=== PATIENT | male | born 1995 | race Two or more races ===

== ENCOUNTER 2024-08-31 19:16 | Emergency (ER) | payer SELFPAY | END 2024-08-31 20:53 | disposition left against medical advice (07) | LOC: ER 19:16 | DX: Z44.8 Encounter for fitting and adjustment of other external prosthetic devices (principal); Z53.21 Procedure and treatment not carried out due to patient leaving prior to being seen by health care provider ==

== ENCOUNTER 2024-09-18 10:17 | Emergency (ER) | payer MEDICAID ==
[~2024-09-18] VITALS: Ht 180.3 cm; Wt 59.0 kg
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
[2024-09-18 12:50] LABS: Urine Protein, UAD 1+ (Negative)
[2024-09-18] MEDS ORDERED: CIPR-173 PO (14:04)
[2024-09-18 15:40] VITALS: BP 112/63; PULSE 89; RESP 18; TEMP 98.2; O2SAT 97
== END 2024-09-18 16:45 | disposition home or self-care (01) ==
LOC: ER 10:17
DX: T83.098A Other mechanical complication of other urinary catheter, initial encounter (principal); N39.0 Urinary tract infection, site not specified; F17.210 Nicotine dependence, cigarettes, uncomplicated; F10.90 Alcohol use, unspecified, uncomplicated; F12.90 Cannabis use, unspecified, uncomplicated; F19.90 Other psychoactive substance use, unspecified, uncomplicated; G82.20 Paraplegia, unspecified; Z93.59 Other cystostomy status; Z98.890 Other specified postprocedural states; Y90.9 Presence of alcohol in blood, level not specified; Y83.8 Other surgical procedures as the cause of abnormal reaction of the patient, or of later complication, without mention of misadventure at the time of the procedure; Y92.89 Other specified places as the place of occurrence of the external cause
CPT/HCPCS: 81001